=== PATIENT | female | born 1950 | race Caucasian/White ===

== ENCOUNTER 2017-01-28 17:28 | Inpatient (IN) | payer MEDICARE ==
[~2017-01-28] VITALS: Ht 162.6 cm; Wt 68.9 kg
[2017-01-28] MEDS ORDERED: ESCI20TA PO (17:46)
[2017-01-28] MEDS ORDERED: OXYC40TA50 PO (17:46)
[2017-01-28] MEDS ORDERED: BUPR150T5 PO (17:46)
[2017-01-28] MEDS ORDERED: RANI150T8 PO (17:46)
[2017-01-28] MEDS ORDERED: OXYC15TA2 PO (17:46)
[2017-01-28] MEDS ORDERED: NAPR500T3 PO (17:46)
[2017-01-28] MEDS ORDERED: OXYB5TAB PO (17:46)
[2017-01-28] MEDS ORDERED: OMEP20CA10 PO (17:46)
[2017-01-28] MEDS ORDERED: NORT10CA PO (17:46)
[2017-01-28] MEDS ORDERED: GABA800T2 PO (17:46)
[2017-01-28] MEDS ORDERED: VITAMIN D3 PO (17:46)
[2017-01-28] MEDS ORDERED: OSCAL PO (17:46)
[2017-01-28] MEDS ORDERED: CARI350T PO (17:46)
[2017-01-28] MEDS ORDERED: ATOR10TA PO (17:46)
[2017-01-28] MEDS ORDERED: BACL20TA PO (17:46)
--- NOTE | 2017-01-28 17:48 | NUR ---
Pt ambulstory to bed 3 w/ assist of walker, dr malave at bedside for exam.
[2017-01-28] MEDS ORDERED: VANCOMYCIN IV 1,000 MG in IV DEXTROSE 5% 250 ML IV ONE (18:00)
[2017-01-28] MEDS ORDERED: PIPERACILLIN SODIUM/TAZOBACTAM 3.375 G in IV DEXTROSE 5% 50 ML IV ONE (18:00)
[2017-01-28] MEDS ORDERED: VANCOMYCIN IV 200 ML ONE (18:07)
[2017-01-28] MEDS ORDERED: PIPERACILLIN/TAZOBACTAM/D5W 50 ML IV ONE (18:07)
--- NOTE | 2017-01-28 18:20 | NUR ---
LAB [facility] BLOOD AND BLOOD CX, EKG DONE, SALINE LOCK PLACED, ZOSYN IVPB INFUSING.
--- NOTE | 2017-01-28 18:21 | NUR ---
MONITOR SHOWS NSR, [phone] ON ROOM AIR
[2017-01-28 18:23] LABS: BASOPHILS % (AUTO) 0.6 % (0.0-2.0); EOSINOPHILS # (AUTO) 0.2 K/uL (0.0-0.7); EOSINOPHILS % (AUTO) 5.9 % (0.0-7.0); HEMATOCRIT 34.8 % (37.0-47.0); HEMOGLOBIN 11.9 g/dL (12.0-16.0); LYMPHOCYTES # (AUTO) 1.4 K/uL (0.8-4.8); LYMPHOCYTES % (AUTO) 35.1 % (20.5-51.5); MEAN CORPUSCULAR HEMOGLOBIN 30.9 uug (27.0-31.0); MEAN CORPUSCULAR HGB CONC 34 g/dL (32.0-37.0); MEAN CORPUSCULAR VOLUME 90.1 fL (81.0-99.0); MONOCYTES # (AUTO) 0.2 K/uL (0.1-1.30); MONOCYTES % (AUTO) 5.9 % (0.0-11.0); NEUTROPHILS # (AUTO) 2.3 K/uL (1.8-8.9); NEUTROPHILS % (AUTO) 52.5 % (38.5-71.5); PLATELET COUNT (AUTO) 116 K/uL (150-450); RED BLOOD CELL COUNT(AUTO) 3.87 MIL/uL (4.20-5.40); RED CELL DISTRIBUTION WIDTH 12.9 % (11.5-14.5); WHITE BLOOD COUNT (AUTO) 4.1 K/uL (4.0-11.2)
--- NOTE | 2017-01-28 18:27 | NUR ---
PT TO CT SCAN
[2017-01-28 18:34] LABS: CALCIUM 9.3 mg/dL (8.5-10.1); CREATININE 0.7 mg/dL (0.6-1.3); POTASSIUM 4.4 mmol/L (3.5-5.1)
[2017-01-28 18:40] LABS: ALBUMIN 3.8 g/dL (3.4-5.0); BILIRUBIN,DIRECT 0.1 mg/dL (0.0-0.2); BILIRUBIN,TOTAL 0.5 mg/dL (0.2-1.0); TOTAL PROTEIN, SERUM 6.3 g/dL (6.4-8.2)
--- NOTE | 2017-01-28 18:46 | NUR ---
PT RETURNED FROM RADIOLOGY.
[2017-01-28] MEDS ORDERED: OXYCODONE/APAP 5-325 MG TABLET ONE (19:01)
--- NOTE | 2017-01-28 19:03 | NUR ---
SBAR REPORT TO LILIAN COLLINS
[2017-01-28] MEDS ORDERED: OXYCODONE/APAP 5-325 MG TABLET PO ONE (19:15)
--- NOTE | 2017-01-28 19:20 | NUR ---
2nd call to MD PHYLLIS will be paged.
[2017-01-28] MEDS ORDERED: diphenhydrAMINE 50 MG/1 ML VIAL IV ONE (19:30)
[2017-01-28] MEDS ORDERED: diphenhydrAMINE 50 MG/1 ML VIAL ONE (19:31)
--- NOTE | 2017-01-28 20:30 | NUR ---
Pt. admitted to [facility], under care of Dr. Rabago Belongs List completed
--- NOTE | 2017-01-28 20:35 | NUR ---
RECEIVED PATIENT VIA GURNEY FROM ER. PATIENT IS A/O X4. DENIES PAIN UPON ADMISSION. VSS. NO RESP. DISTRESS NOTED. H/L INTACT AND NOTED TO RIGHT FA #22 GAUGE. ORIENTATED TO ROOM AND CALL LIGHT. CALL LIGHT IN REACH. ALL NEEDS ATTENDED. WILL CONTINUE TO MONITOR.
[2017-01-28] MEDS ORDERED: ZOLPIDEM 5 MG TABLET PO PRN (20:45)
[2017-01-28] MEDS ORDERED: buPROPion SR 150 MG TABLET.SA PO SCH (20:45)
[2017-01-28] MEDS ORDERED: ACETAMINOPHEN 325 MG TABLET PO PRN (20:45)
[2017-01-28] MEDS ORDERED: BACLOFEN 20 MG TABLET PO SCH ×2 (20:45→21:45)
[2017-01-28] MEDS ORDERED: MORPHINE SULFATE 2 MG/1 ML DISP.SYRIN IV PRN (20:45)
[2017-01-28] MEDS ORDERED: ONDANSETRON 4 MG/2 ML VIAL IV PRN (20:45)
[2017-01-28] MEDS ORDERED: MAGNESIUM HYDROXIDE 30 ML LIQUID UDC PO PRN (20:45)
[2017-01-28] MEDS ORDERED: CARISOPRODOL 350 MG TABLET PO SCH (20:45)
[2017-01-28] MEDS ORDERED: OXYBUTYNIN XL 5 MG TABSR PO SCH (20:45)
[2017-01-28 20:47] VITALS: BP 124/36
[2017-01-28] MEDS ORDERED: DOCUSATE SODIUM 250 MG CAPSULE PO SCH (21:00)
--- NOTE | 2017-01-28 21:05 | NUR ---
CLINICAL PHARMACY NOTE:VANCOMYCIN DOSING Request for vancomycin dosing on 66 y/o female 5'4" 151 labs for facial cellulitis Temp 98.1 BUN 18 Scr 0.7 WBC 4.1 also on Zosyn received 1gm vancomycin in ER 1845 Continue vancomycin 1gm ivpb q18 hours estimate trough 15. Will order trough level prior to 4th dose. Will continue to monitor.
[2017-01-28] MEDS: IV NS 1000 ML 1,000 ML IV PRN (21:19)
[2017-01-28] MEDS: ATORVASTATIN 10 MG TABLET PO SCH (21:28)
[2017-01-28] MEDS: ENOXAPARIN SODIUM 40 MG/0.4 ML DISP.SYRIN SQ SCH (21:28)
[2017-01-28] MEDS: DOCUSATE SODIUM 100 MG CAPSULE PO SCH (21:28)
[2017-01-28] MEDS: OXYCODONE HCL 40 MG TAB.SR.12H PO SCH (21:29)
[2017-01-28] MEDS: GABAPENTIN 100 MG CAPSULE PO SCH (21:43)
[2017-01-28] MEDS: buPROPion SR 150 MG TABLET.SA PO SCH (21:43)
[2017-01-28] MEDS: OXYBUTYNIN XL 5 MG TABSR PO SCH (21:44)
--- NOTE | 2017-01-28 21:45 | NUR ---
PATIENT GIVEN ALL ROUTINE MEDS ORDERED PER DR. JEFFERSON. ALL NEEDS ATTENDED.
[2017-01-28] MEDS ORDERED: BACLOFEN 20 MG TABLET ONE (21:48)
[2017-01-28] MEDS ORDERED: buPROPion SR 150 MG TABLET.SA PO ONE (21:49)
[2017-01-28] MEDS ORDERED: OXYBUTYNIN CHLORIDE 5 MG TABLET ONE (21:49)
[2017-01-28] MEDS ORDERED: GABAPENTIN 100 MG CAPSULE ONE (21:50)
[2017-01-28] MEDS: BACLOFEN 20 MG TABLET PO SCH (22:10)
[2017-01-28] MEDS: CARISOPRODOL 350 MG TABLET PO PRN (23:39)
[2017-01-28] MEDS: PIPERACILLIN/TAZOBACTAM/D5W 3.375 G in PREMIXED 1 EACH IV SCH (23:41)
[2017-01-29] MEDS: PIPERACILLIN/TAZOBACTAM/D5W 3.375 G in PREMIXED 1 EACH IV SCH ×3 (05:36→21:22)
[2017-01-29 05:50] VITALS: BP 102/47
[2017-01-29] MEDS: PANTOPRAZOLE SODIUM 40 MG TABLET.DR PO SCH (06:08)
--- NOTE | 2017-01-29 06:17 | NUR ---
PATIENT ASLEEP IN BED. EASILY AROUSABLE. DENIES PAIN OR DISCOMFORT. NO RESP. DISTRESS NOTED. VSS. IVF INFUSING WELL. BED ALARM ON. CALL LIGHT IN REACH. ALL NEEDS ATTENDED. WILL CONTINUE TO MONITOR.
[2017-01-29 07:36] LABS: BASOPHILS % (AUTO) 0.6 % (0.0-2.0); EOSINOPHILS # (AUTO) 0.3 K/uL (0.0-0.7); EOSINOPHILS % (AUTO) 6.7 % (0.0-7.0); HEMATOCRIT 34.8 % (37.0-47.0); HEMOGLOBIN 11.7 g/dL (12.0-16.0); LYMPHOCYTES # (AUTO) 1.8 K/uL (0.8-4.8); LYMPHOCYTES % (AUTO) 39.9 % (20.5-51.5); MEAN CORPUSCULAR HEMOGLOBIN 30.6 uug (27.0-31.0); MEAN CORPUSCULAR HGB CONC 34 g/dL (32.0-37.0); MEAN CORPUSCULAR VOLUME 91.1 fL (81.0-99.0); MONOCYTES # (AUTO) 0.3 K/uL (0.1-1.30); MONOCYTES % (AUTO) 6.8 % (0.0-11.0); NEUTROPHILS # (AUTO) 2.2 K/uL (1.8-8.9); PLATELET COUNT (AUTO) 100 K/uL (150-450); RED BLOOD CELL COUNT(AUTO) 3.83 MIL/uL (4.20-5.40); RED CELL DISTRIBUTION WIDTH 13.1 % (11.5-14.5); WHITE BLOOD COUNT (AUTO) 4.6 K/uL (4.0-11.2)
[2017-01-29 07:59] LABS: ALBUMIN 3.3 g/dL (3.4-5.0); BILIRUBIN,TOTAL 0.4 mg/dL (0.2-1.0); CREATININE 0.8 mg/dL (0.6-1.3); MAGNESIUM 1.9 mg/dL (1.8-2.4); PHOSPHOROUS 4.3 mg/dL (2.5-4.9); POTASSIUM 4.2 mmol/L (3.5-5.1); TOTAL PROTEIN, SERUM 5.5 g/dL (6.4-8.2)
--- NOTE | 2017-01-29 08:00 | NUR ---
AWAKE, ALERT AND ORIENTED X4. AMBULATES TO BATHROOM WITH MINIMAL ASSIST TO DO SELF CATH FOR CLEAR YELLOW URINE. LESS SWELLING AT RIGHT PERIORBITAL AND NOSE THAN LAST NIGHT PICTURES ON ADMISSION. HOB KEPT ELEVATED. ASPIRATIONS PRECAUTIONS REINFORCED.
[2017-01-29] MEDS: GABAPENTIN 100 MG CAPSULE PO SCH ×3 (09:06→16:44)
[2017-01-29] MEDS: buPROPion SR 150 MG TABLET.SA PO SCH ×2 (09:08→20:59)
[2017-01-29] MEDS: OXYCODONE HCL 40 MG TAB.SR.12H PO SCH ×2 (09:08→20:59)
[2017-01-29] MEDS: BACLOFEN 20 MG TABLET PO SCH ×4 (09:08→20:59)
[2017-01-29 11:06] VITALS: BP 108/51
[2017-01-29] MEDS: VANCOMYCIN IV 1 G in PREMIXED 0 EACH IV SCH (12:27)
[2017-01-29] MEDS: CARISOPRODOL 350 MG TABLET PO PRN (12:31)
[2017-01-29 12:51] LABS: THYROID STIMULATING HORMONE 2.78 mIU/mL (0.358-3.740)
[2017-01-29 16:35] VITALS: BP 102/49
--- NOTE | 2017-01-29 16:41 | NUR ---
CLINICAL PHARMACY NOTE:VANCOMYCIN DOSING to continue vancomycin dosing on 66 y/o female 5'4" 151 labs for facial cellulitis Temp 97.9 BUN 14 Scr 0.8 WBC 4.6 also on Zosyn received 1gm vancomycin in ER 1845 01/28 Continue vancomycin 1gm ivpb q18 hours estimate trough 15. Second order today at 1300. Will order trough level prior to 4th dose (not ordered yet). Will continue to monitor.
[2017-01-29] MEDS: OXYBUTYNIN XL 5 MG TABSR PO SCH (16:44)
--- NOTE | 2017-01-29 17:30 | NUR ---
IV RESTARTED IN RIGHT OUTSIDE FOREARM FOR PREVIOUS IV INFILTRATION. RIGHT ARM ELEVATED. AFEBRILE. VSS.INTERMITTENT SELF CATH DONE X3 TODAY FOR MODERATE TO LARGE AMOUNT URINE. TAKING MEALS WELL WITHOUT SIGNS OF ASPIRATION
[2017-01-29 20:00] VITALS: BP 100/49
--- NOTE | 2017-01-29 20:00 | NUR ---
RECEIVED PATIENT AWAKE IN BED WITH VISITOR AT BEDSIDE. PATIENT IS A/O X4. VSS. IVF INFUSING WELL TO RIGHT FA #22 GAUGE. DENIES SOB. NO C/O PAIN AT THIS TIME. CALL LIGHT IN REACH. ALL NEEDS ATTENDED. WILL CONTINUE TO MONITOR.
[2017-01-29] MEDS: DOCUSATE SODIUM 100 MG CAPSULE PO SCH (20:26)
[2017-01-29] MEDS: ATORVASTATIN 10 MG TABLET PO SCH (20:58)
[2017-01-29] MEDS: ENOXAPARIN SODIUM 40 MG/0.4 ML DISP.SYRIN SQ SCH (21:01)
[2017-01-29] MEDS: diphenhydrAMINE 50 MG/1 ML VIAL IV PRN (22:41)
[2017-01-29] MEDS ORDERED: diphenhydrAMINE 50 MG/1 ML VIAL ONE (22:43)
[2017-01-29] MEDS: ESCITALOPRAM OXALATE 10 MG TABLET PO SCH (22:49)
[2017-01-29] MEDS: OXYCODONE HCL 5 MG TABLET PO PRN (22:50)
[2017-01-29] MEDS ORDERED: ESCITALOPRAM OXALATE 10 MG TABLET ONE (22:55)
[2017-01-29] MEDS ORDERED: OXYCODONE HCL 5 MG TABLET ONE (22:56)
[2017-01-30] MEDS: IV NS 1000 ML 1,000 ML IV PRN (00:24)
[2017-01-30] MEDS: PIPERACILLIN/TAZOBACTAM/D5W 3.375 G in PREMIXED 1 EACH IV SCH ×3 (05:13→21:30)
[2017-01-30 05:15] VITALS: BP 111/48
--- NOTE | 2017-01-30 05:55 | NUR ---
PATIENT AWAKE. ASSISTED TO BATHROOM. DENIES PAIN OR DISCOMFORT. NO RESP. DISTRESS NOTED. VSS. SLEPT AT SMALL INTERVALS. NO RESP. DISTRESS NOTED. IVF INFUSING WELL. CALL LIGHT IN REACH. ALL NEEDS ATTENDED. WILL CONTINUE TO MONITOR AND ASSESS .
[2017-01-30] MEDS: PANTOPRAZOLE SODIUM 40 MG TABLET.DR PO SCH (06:08)
[2017-01-30] MEDS: VANCOMYCIN IV 1 G in PREMIXED 0 EACH IV SCH (06:20)
[2017-01-30] MEDS: GABAPENTIN 100 MG CAPSULE PO SCH ×3 (08:19→17:13)
[2017-01-30] MEDS: OXYCODONE HCL 40 MG TAB.SR.12H PO SCH ×2 (08:20→20:36)
[2017-01-30] MEDS: buPROPion SR 150 MG TABLET.SA PO SCH ×2 (08:20→20:38)
[2017-01-30] MEDS: BACLOFEN 20 MG TABLET PO SCH ×4 (08:21→20:34)
[2017-01-30] MEDS: diphenhydrAMINE 50 MG/1 ML VIAL IV PRN (09:27)
--- NOTE | 2017-01-30 10:04 | NUR ---
Clinical Pharmacy Note: Vancomycin Dosing per Pharmacy Subjective: Vancomycin IV to continue on this patient for facial cellulitis. Objective: BUN 14/Scr 0.8 (01/29) WBC 4.6 (01/29) Temperature 97.9 Assessment/Plan: Will continue same dose of vancomycin 1gm IVPB q18hr for today. Plan to draw vancomycin trough level before 4th dose (ordered for 01/31 at 0030- RN has been informed to hold 0100 am dose if vancomycin trough level is above 20 mcg/ml). Pharmacy will check vancomycin trough level in am & adjust the dose if needed. Will follow closely daily.
[2017-01-30 11:51] VITALS: BP 109/71
[2017-01-30 15:42] VITALS: BP 110/64
[2017-01-30] MEDS: OXYBUTYNIN XL 5 MG TABSR PO SCH (17:13)
--- NOTE | 2017-01-30 18:24 | NUR ---
Patient in bed resting throughout my shift. No s/s of acute distress noted. C/O of pain during the day, medicated as ordered. Good appetite, going to the bathroom to void regularly. Iv still intact. Safety and comfort provided by staff. Will continue monitoring.
--- NOTE | 2017-01-30 19:16 | NUR ---
IV dc due to pain and redness on the side. Report given to LENCHO Gordon.
[2017-01-30 20:00] VITALS: BP 118/53
--- NOTE | 2017-01-30 20:00 | NUR ---
RECEIVED PATIENT AWAKE IN BED WITH VISITOR AT BEDSIDE. PATIENT IS A/O X4. NEW IV HEPLOCK STARTED TO RIGHT HAND #22 GAUGE. C/O MILD PAIN IN NECK AND BACK. NO RESP. DISTRESS NOTED. VSS. BED ALARM ON. CALL LIGHT IN REACH, ALL NEEDS ATTENDED. WILL CONTINUE TO MONITOR.
[2017-01-30 20:22] VITALS: BP 118/53
[2017-01-30] MEDS: DOCUSATE SODIUM 100 MG CAPSULE PO SCH (20:32)
[2017-01-30] MEDS: LACTOBACILLUS RHAMNOSUS GG 1 EACH CAPSULE PO SCH ×2 (20:34→21:00)
[2017-01-30] MEDS: ATORVASTATIN 10 MG TABLET PO SCH (20:35)
[2017-01-30] MEDS: ESCITALOPRAM OXALATE 10 MG TABLET PO SCH (20:35)
[2017-01-30] MEDS: ENOXAPARIN SODIUM 40 MG/0.4 ML DISP.SYRIN SQ SCH (20:37)
[2017-01-30] MEDS ORDERED: ACIDOPHILUS/BULGARICUS CHEW TAB PO SCH (21:00)
[2017-01-31] MEDS: VANCOMYCIN IV 1 G in PREMIXED 0 EACH IV SCH (00:55)
[2017-01-31] MEDS: OXYCODONE HCL 5 MG TABLET PO PRN ×2 (01:12→11:12)
[2017-01-31] MEDS: diphenhydrAMINE 50 MG/1 ML VIAL IV PRN (02:45)
[2017-01-31 05:40] VITALS: BP 108/54
[2017-01-31] MEDS: PIPERACILLIN/TAZOBACTAM/D5W 3.375 G in PREMIXED 1 EACH IV SCH (06:08)
[2017-01-31] MEDS: PANTOPRAZOLE SODIUM 40 MG TABLET.DR PO SCH (06:32)
--- NOTE | 2017-01-31 06:39 | NUR ---
PATIENT AWAKE IN BED. SLEPT WELL. VSS. NO C/O PAIN AT THIS TIME. CALL LIGHT IN REACH. ALL NEEDS ATTENDED.WILL CONTINUE TO MONITOR.
--- NOTE | 2017-01-31 08:00 | NUR ---
awake alert and oriented, states has pain on her neck and left shoulder and routine pain med given, with left hemiparesis, repositioned for comfort and breakfast, needs minimal assistance, explained plan of care- verbalized understanding, safety measures maintained, call lite within reach
[2017-01-31] MEDS: GABAPENTIN 100 MG CAPSULE PO SCH ×3 (08:46→16:52)
[2017-01-31] MEDS: LACTOBACILLUS RHAMNOSUS GG 1 EACH CAPSULE PO SCH (08:46)
[2017-01-31] MEDS: buPROPion SR 150 MG TABLET.SA PO SCH (08:46)
[2017-01-31] MEDS: BACLOFEN 20 MG TABLET PO SCH ×3 (08:46→16:52)
[2017-01-31] MEDS: OXYCODONE HCL 40 MG TAB.SR.12H PO SCH (08:47)
[2017-01-31 12:03] VITALS: BP 122/58
[2017-01-31] MEDS: CARISOPRODOL 350 MG TABLET PO PRN (12:29)
--- NOTE | 2017-01-31 14:30 | NUR ---
ambulated in the bathroom with assistance- pt does self catheterization
--- NOTE | 2017-01-31 15:10 | NUR ---
seen by Dr Rabago with order for D/C
[2017-01-31] MEDS ORDERED: SULF1TAB48 PO (15:24)
--- NOTE | 2017-01-31 16:00 | NUR ---
discharge instructions given by RN and medication instructions by pharmacist including prescription-verbalized understanding, saline lock removed on the right hand- no swelling/redness noted on site
[2017-01-31 16:08] VITALS: BP 124/56
[2017-01-31] MEDS: OXYBUTYNIN XL 5 MG TABSR PO SCH (16:52)
--- NOTE | 2017-01-31 17:52 | NUR ---
escorted to car per w/c under personal lines account manager's care, pt in stable condition, all belongings with her
== END 2017-01-31 17:52 | disposition home health service (06) | DRG 603 ==
LOC: ER 17:37 → MED 20:07
PROVIDERS: ADMIT Internal Medicine; ATTEND Internal Medicine
DX: L03.211 Cellulitis of face (principal); D68.59 Other primary thrombophilia; E87.1 Hypo-osmolality and hyponatremia; D64.9 Anemia, unspecified; D69.6 Thrombocytopenia, unspecified; E78.5 Hyperlipidemia, unspecified; K21.9 Gastro-esophageal reflux disease without esophagitis; M19.90 Unspecified osteoarthritis, unspecified site; M81.0 Age-related osteoporosis without current pathological fracture; W57.XXXA Bitten or stung by nonvenomous insect and other nonvenomous arthropods, initial encounter; Y93.9 Activity, unspecified; Y92.009 Unspecified place in unspecified non-institutional (private) residence as the place of occurrence of the external cause; Y99.9 Unspecified external cause status; S01.20XA Unspecified open wound of nose, initial encounter; F32.9 Major depressive disorder, single episode, unspecified; R53.1 Weakness; Z96.619 Presence of unspecified artificial shoulder joint; S14.106S Unspecified injury at C6 level of cervical spinal cord, sequela; G89.4 Chronic pain syndrome; H05.223 Edema of bilateral orbit
CPT/HCPCS: 36415; 70486; 71010; 83550; 83605; 83735; 84100; 84443; 85025; 85730; 87040; 93005; A4663; J1200; J1650; J2270; J2543; J3370; J7030